=== PATIENT | male | born 1990 | race American Indian/Alaskan Native ===

== ENCOUNTER 2017-06-28 13:01 | Emergency (ER) | payer OTHER, MEDICAID ==
[2017-06-28 13:58] VITALS: BP 150/99
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
[2017-06-28] MEDS ORDERED: MOTRIN PO ONE (15:49)
[2017-06-28] MEDS ORDERED: FLEXERIL PO ONE (17:17)
[2017-06-28] MEDS ORDERED: NORCO 7.5/325 PO ONE (17:17)
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
== END 2017-06-28 19:40 | disposition home or self-care (01) ==
LOC: ED 13:01
DX: S29.8XXA Other specified injuries of thorax, initial encounter (principal); V89.2XXA Person injured in unspecified motor-vehicle accident, traffic, initial encounter; Y93.89 Activity, other specified; Y92.89 Other specified places as the place of occurrence of the external cause; Y99.8 Other external cause status; Z90.49 Acquired absence of other specified parts of digestive tract
CPT/HCPCS: 71046; 71250; 93005; 93010